=== PATIENT | male | born 1970 | race Caucasian/White ===

== ENCOUNTER 2020-04-07 01:53 | Emergency (ER) | payer OTHER ==
[~2020-04-07] VITALS: Ht 175.3 cm; Wt 84.6 kg
--- NOTE | 2020-04-07 02:06 | PHYS DOC ---
General Adult EDM: Chief Complaint: FOREIGN BODY/EYES HPI: HPI: The history was obtained from the patient. Patient is a 50-year-old male with PMH TBI who presents with a chief complaint of right eye pain and redness. 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 He states he gradually noticed some right eye redness throughout the day. He states he had some right eye irritation tonight and try to irrigate his eye copiously. He states he woke up approximately 1 hour ago with right eye pain and watery discharge. He notes his eye seems more red. Denies any known trauma. 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 He also notes that he is a battery mechanic and is around dust and particles in the air frequently. Denies any contact lens or corrective lens usage. Denies any recent eye procedures. Denies headaches. Denies vomiting. Denies acute vision changes. No other complaints. Review of Systems: Review of Systems: Constitutional: Denies fever or chills Eyes: Positive for eye pain and redness HENT: Denies nasal congestion or sore throat Respiratory: Denies cough or shortness of breath Cardiovascular: Denies chest pain or edema GI: Denies abdominal pain, nausea, vomiting, bloody stools or diarrhea : Denies dysuria Musculoskeletal: Denies back pain or joint pain Integument: Denies rash Neurologic: Denies headache, focal weakness or sensory changes Endocrine: Denies polyuria or polydipsia Lymphatic: Denies swollen glands Psychiatric: Denies depression or anxiety Heart Score: Risk Factors: Risk Factors: DM, Current or recent (<one month) smoker, HTN, HLP, family hist ory of CAD, obesity. Risk Scores: Score 0 - 3: 2.5% MACE over next 6 weeks - Discharge Home Score 4 - 6: 20.3% MACE over next 6 weeks - Admit for Clinical Observation Score 7 - 10: 72.7% MACE over next 6 weeks - Early Invasive Strategies Current Medications: Current Meds: Current Medications Medications (Trade) Dose Ordered Sig/Landon Start Time Stop Time Status Last Admin Dose Admin Fluorescein Sodium (Ful-Vianey 1mg) 1 strip 1X ONCE 04/07/20 02:15 04/07/20 02:16 UNV Tetracaine HCl (Tetracaine) 1 drop 1X ONCE 04/07/20 02:15 9/16/20 02:16 UNV Physical Exam: PE: Constitutional: Well developed, well nourished, no acute distress, non-toxic appearance. [] HENT: Normocephalic, atraumatic, bilateral external ears normal, oropharynx moist, no oral exudates, nose normal. [] Neck: Normal range of motion, no tenderness, supple, no stridor. [] Cardiovascular:Heart rate regular rhythm, no murmur [] Lungs & Thorax: Bilateral breath sounds clear to auscultation [] Abdomen: Bowel sounds normal, soft, no tenderness, no masses, no pulsatile masses. [] Skin: Warm, dry, no erythema, no rash. [] Back: No tenderness, no CVA tenderness. [] Extremities: No tenderness, no cyanosis, no clubbing, ROM intact, no edema. [] Neurologic: Alert and oriented X 3, normal motor function, normal sensory function, no focal deficits noted. [] Psychologic: Affect normal, judgement normal, mood normal. [] EYES: 20/25 OD 20/25 OS 20/20 OU. There are no visual field deficits. IOP: 16 OD 16 OS. Pupil OD: 3 to 2mm OS 3 to 2 mm no APD present, ERRLA. Right ophthalmic exam: The periorbital region has no edema or erythema. There is no tenderness palpation of the bone(s) of the orbital rim. There is no proptosis. There is no blepharedema. The margins of the eyelid are intact without lacerations. The lacrimal system appears intact. EOMI without evidence of entrapment. Cornea is clear without hyphema or hypopyon. Conjunctiva is injected. There is no subconjunctival hemorrhage. Sclera intact without laceration. Sadia sign under slit lamp examination is negative. Fluorescein staining does demonstrate abnormal uptake at the 7 o'clock position. 1mm Rust ring noted at the 7 o'clock position not overlying the visual axis. Anterior chamber was inspected with no cell and no flare identified. No foreign bodies identified. Current Patient Data: Vital Signs: Vital Signs Date Time Temp Pulse Resp B/P (MAP) Pulse Ox O2 Delivery O2 Flow Rate FiO2 04/07/20 02:10 97.9 58 16 121/77 (92) 100 Room Air 04/07/20 02:05 97.9 58 16 121/77 (92) 100 Room Air EKG: EKG: [] Radiology/Procedures: Radiology/Procedures: [][place] [id number] IMAGING REPORT Signed PATIENT: JASON PEDRAZA ACCOUNT: [id number] : 1970 LOCATION: ER AGE: 50 SEX: M EXAM STATUS: REG ER ORD. PHYSICIAN: JOE LOWRY DO REASON: r eye pain. concern for FB PROCEDURE: CT ORBITS WO CONTRAST Examination: CT orbits without contrast HISTORY: History of right eye pain COMPARISON: None available Technique: Axial CT images of the orbits performed without contrast and coronal sagittal reformats are performed Exposure: One or more of the following individualized dose reduction techniques were utilized for this examination: 1. Automated exposure control 2. Adjustment of the mA and/or kV according to patient size 3. Use of iterative reconstruction technique FINDINGS: The bilateral orbital globes appear intact. The intraorbital fat is maintained. Tiny focus of hypodensity identified just anterior to the right orbital globe laterally probably tiny focus of air in the soft tissue anterior and lateral to the orbital globe best seen on series 3 image 21. The visualized extraocular muscles grossly appears unremarkable Mild depressed appearance of the right medial orbital wall likely old fracture. Small mucous retention cyst or polyp identified in the left maxillary sinus. IMPRESSION: 1. The bilateral orbital globes appear intact. Tiny focus of hypodensity identified just anterior to the right orbital globe laterally probably tiny focus of air in the soft tissue anterior and lateral to the orbital globe best seen on series 3 image 21. Electronically signed by: Manpreet Gracia MD (04/07/2020 2:27 AM) [id number] DICTATED AND SIGNED BY: MANPREET GRACIA MD DATE: 04/07/20 0227 CC: JAXON WEEKS; JOE LOWRY DO ~ Course & Med Decision Making: Course & Med Decision Making Pertinent Labs and Imaging studies reviewed. (See chart for details) [] Patient is a 50-year-old male who presents with chief complaint of right eye pain and watery discharge and concern for foreign body. Initial vital signs unremarkable. Visual acuity within normal limits. Intraocular pressures normal. No signs of open globe. Rust ring was visualized at the 7 o'clock position. [place] procedure was performed with some reduction of the rust ring. Eyelids everted without evidence of retained foreign body. Patient states that his tetanus is current. He will be discharged home with erythromycin ointment. He was given referral to an locker room supervisor and instructed to call his locker room supervisor later this morning for further evaluation. Return precautions discussed and understood. Patient is agreeable to this plan. Stable for discharge. Dragon Disclaimer: Dragon Disclaimer: This electronic medical record was generated, in whole or in part, using a voice recognition dictation system. Departure Departure: Impression: Primary Impression: Corneal rust ring of right eye Disposition: HOME/RESIDENCE PRIOR TO ADM Condition: STABLE Referrals: JAXON WEEKS (PCP) [place] MAURO DO Patient Instructions: Eye - Corneal Abrasion, Eye - Corneal Abrasion, [id number] Additional Instructions: Please call the locker room supervisor later this morning for close follow-up. Scripts Erythromycin Base/Ethanol (ERYTHROMYCIN 2% GEL) 30 Gm Gel..gram. 1 ILDEFONSO TP QID for corneal abrasion for 30 Days, #60 GM 0 Refills Prov: JOE LOWRY DO 04/07/20 Justification of Admission: Justification of Admission: Justification of Admission Dx: N/A JOE LOWRY DO Apr 07, 2020 02:06
[2020-04-07 02:10] VITALS: BP 121/77
[2020-04-07] MEDS ORDERED: FLUORESCEIN 1MG EYE STRIP. OU ONE (02:30)
[2020-04-07] MEDS ORDERED: TETRACAINE 0.5% OPHTH SOLUTION 4ML BOTTLE. OD ONE (02:30)
--- NOTE | 2020-04-07 02:30 | RAD ---
Examination: CT orbits without contrast HISTORY: History of right eye pain COMPARISON: None available Technique: Axial CT images of the orbits performed without contrast and coronal sagittal reformats are performed Exposure: One or more of the following individualized dose reduction techniques were utilized for this examination: 1. Automated exposure control 2. Adjustment of the mA and/or kV according to patient size 3. Use of iterative reconstruction technique FINDINGS: The bilateral orbital globes appear intact. The intraorbital fat is maintained. Tiny focus of hypodensity identified just anterior to the right orbital globe laterally probably tiny focus of air in the soft tissue anterior and lateral to the orbital globe best seen on series 3 image 21. The visualized extraocular muscles grossly appears unremarkable Mild depressed appearance of the right medial orbital wall likely old fracture. Small mucous retention cyst or polyp identified in the left maxillary sinus. IMPRESSION: 1. The bilateral orbital globes appear intact. Tiny focus of hypodensity identified just anterior to the right orbital globe laterally probably tiny focus of air in the soft tissue anterior and lateral to the orbital globe best seen on series 3 image 21. Electronically signed by: Manpreet Gracia MD (04/07/2020 2:27 AM) [id number]
[2020-04-07] MEDS ORDERED: ERYT30GE2 TP (02:41)
== END 2020-04-07 02:45 | disposition home or self-care (01) ==
LOC: ER 01:53
DX: T15.01XA Foreign body in cornea, right eye, initial encounter (principal); X58.XXXA Exposure to other specified factors, initial encounter; Y93.89 Activity, other specified; Y92.89 Other specified places as the place of occurrence of the external cause; Y99.8 Other external cause status
CPT/HCPCS: 65220; 70480; 99284-25